=== PATIENT | female | born 1965 | race African-American/Black ===

== ENCOUNTER 2018-08-07 11:13 | Inpatient (IN) | payer OTHER ==
[2018-08-07 11:42] VITALS: BMI 22.0
--- NOTE | 2018-08-07 14:00 | HP ---
CIWA Score - Admission Criteria [facility] Guidelines: Admission for Medically Managed Detox: Requires at least one of the followin. CIWA greater than 12 2. Seizures within the past 24 hours 3. Delirium tremens within the past 24 hours 4. Hallucinations within the past 24 hours 5. Acute intervention needed for co occurring medical disorder 6. Acute intervention needed for co occurring psychiatric disorder 7. Severe withdrawal that cannot be handled at a lower level of care (continued vomiting, continued diarrhea, abnormal vital signs) requiring intravenous medication and/or fluids 8. Admission ROS S - HPI Allergies/Adverse Reactions: Allergies Allergy/AdvReac Type Severity Reaction Status Date / Time No Known Drug Allergies Allergy Unknown Verified 08/07/18 15:09 History of Present Illness: patient here requesting rehab from etoh and cocaine use , s/p detox completed 08/06/18 , direct transfer from detox . cocaine - since age 28 via inhalation menopausal PMHX : denies PShxc : denies Psych : denies Meds :denies Tobacco : 1/2 ppd , requesting nrt w/ patch Exam Limitations: No Limitations - Ebola screening Have you traveled outside of the country in the last 21 days: No Have you had contact with anyone from an Ebola affected area: No Have you been sick,other than usual withdrawal symptoms: No Do you have a fever: No - Review of Systems Constitutional: No Symptoms Reported EENT: reports: Other (glasses , denies dysphagia) Respiratory: reports: No Symptoms reported Cardiac: reports: No Symptoms Reported GI: reports: No Symptoms Reported : reports: No Symptoms Reported Musculoskeletal: reports: No Symptoms Reported Integumentary: reports: No Symptoms Reported Neuro: reports: No Symptoms reported Endocrine: reports: No Symptoms Reported Psychiatric: reports: Orientated x3 Patient History - Patient Medical History Hx Anemia: No Hx Asthma: No Hx Chronic Obstructive Pulmonary Disease (COPD): No Hx Cancer: No Hx Cardiac Disorders: No Hx Congestive Heart Failure: No Hx Hypertension: No Hx Hypercholesterolemia: No Hx Pacemaker: No HX Cerebrovascular Accident: No Hx Seizures: No Hx Dementia: No Hx Diabetes: No Hx Gastrointestinal Disorders: No Hx Liver Disease: No Hx Genitourinary Disorders: No Hx Sexually Transmitted Disorders: No Hx Renal Disease (ESRD): No Hx Thyroid Disease: No Hx Human Immunodeficiency Virus (HIV): No (09/07 last) Hx Hepatitis C: No Hx Depression: Yes Hx Suicide Attempt: No (Denies current SI) Hx Bipolar Disorder: No Hx Schizophrenia: No - Patient Surgical History Past Surgical History: Yes Hx Neurologic Surgery: No Hx Cataract Extraction: No Hx Cardiac Surgery: No Hx Lung Surgery: No Hx Breast Surgery: No Hx Breast Biopsy: No Hx Abdominal Surgery: No Hx Appendectomy: No Hx Cholecystectomy: No Hx Genitourinary Surgery: No Hx Section: No Hx Orthopedic Surgery: No Other Surgical History: TUBAL LIGATION IN 2007 Anesthesia Reaction: No - PPD History Date: 10/04/17 Results: 0 MM - Reproductive History Last Menstrual Period: 05/26/15 - Smoking Cessation Smoking history: Current every day smoker Have you smoked in the past 12 months: Yes Aproximately how many cigarettes per day: 10 Hx Chewing Tobacco Use: No Initiated information on smoking cessation: No - Substances Abused Crack Route: Smoking Frequency: 1-2 times per week Amount used: $50 Age of first use: 38 Date of Last Use: 08/02/18 Alcohol-vodka Route: Oral Frequency: Daily Amount used: 4-5 pts. Age of first use: 23 Date of Last Use: 08/02/18 Family Disease History - Family Disease History Family Disease History: CA: Mother (Unk CA, ), Other: Father (stroke, ) Admission Physical Exam S - Vital Signs Vital Signs: Vital Signs - 24 hr 08/07/18 11:41 Temperature 97.5 F L Pulse Rate 77 Respiratory 18 Rate Blood Pressure 128/83 - Physical General Appearance: Yes: No Apparent Distress HEENTM: Yes: EOMI, Hearing grossly Normal, Normocephalic, Normal Voice Respiratory: Yes: Chest Non-Tender, Lungs Clear, Normal Breath Sounds Neck: Yes: No masses,lesions,Nodules, Trachea in good position Cardiology: Yes: Regular Rhythm, Regular Rate, S1, S2, Gallop/S3 Abdominal: Yes: Normal Bowel Sounds, Non Tender, Soft Genitourinary: Yes: Within Normal Limits Back: Yes: Normal Inspection Musculoskeletal: Yes: full range of Motion, Gait Steady Extremities: Yes: Normal Capillary Refill, Normal Range of Motion, Non-Tender Neurological: Yes: Motor Strength 5/5 Integumentary: Yes: Normal Color - Diagnostic (1) Alcohol dependence Current Visit: No Status: Chronic (2) Cocaine dependence Current Visit: No Status: Chronic (3) Nicotine dependence Current Visit: No Status: Chronic Qualifiers: Nicotine product type: cigarettes BHS Breath Alcohol Content Breath Alcohol Content: 0 Urine Drug Screen - Results Drug Screen Negative: No Urine Drug Screen Results: BZO-Benzodiazepines Inpatient Rehab Admission - Rehab Decision to Admit Inpatient rehab admission?: Yes - Initial Determination Are CD services needed?: Yes Free of communicable disease: Yes Not in need of hospitalization: Yes - Rehab Admission Criteria Previous failed treatment: No Poor recovery environment: No Comorbidities: No Lacks judgement: Yes Patient is meeting Inpatient Rehab admission criteria:: Yes
[2018-08-07] MEDS ORDERED: ACETAMINOPHEN 325 MG TABLET (FP) PO PRN (14:03)
[2018-08-07] MEDS ORDERED: MAGNESIUM HYDROX 2400MG/30ML ORAL SUSPENSION 30 ML CUP PO PRN (14:03)
[2018-08-07] MEDS ORDERED: IBUPROFEN 400 MG TABLET (FP) PO PRN (14:03)
[2018-08-07] MEDS ORDERED: MAG HYDROX/AL HYDROX/SIMETH 30 ML UNIT-DOSE CUP PO PRN (14:03)
[2018-08-07] MEDS ORDERED: MENTHOL/PHENOL 1 EACH UD MM PRN (14:03)
[2018-08-07] MEDS ORDERED: NICOTINE POLACRILEX 2 MG GUM BUC PRN (14:03)
[2018-08-07] MEDS ORDERED: MAGNESIUM CITRATE 300 ML BOTTLE PO PRN (14:03)
[2018-08-07] MEDS: THIAMINE HCL 100 MG TABLET (FP) PO SCH (21:54)
[2018-08-08] MEDS: NICOTINE 14 MG/24 HOURS TOPICAL PATCH TD SCH (09:03)
[2018-08-08] MEDS: AMMONIUM LACTATE 12% LOTION 225 GM BOTTLE TP PRN (09:04)
[2018-08-08] MEDS: PRENATAL VITAMINS W/ FOLIC ACID TABLET (FP) PO SCH (09:05)
[2018-08-08] MEDS ORDERED: PT OWN MED DRAWER 7, Y5N ONE (09:21)
[2018-08-08 10:19] LABS: ALBUMIN 3.9 g/dl (3.4-5.0); ALK PHOS 82 U/L (45-117); ANION GAP 4 MMOL/L (8-16); BILIRUBIN,TOTAL 0.3 mg/dL (0.2-1); BLOOD UREA NITROGEN 24 mg/dL (7-18); CALCIUM 9.3 mg/dL (8.5-10.1); CHLORIDE 105 mmol/L (98-107); CO2 29 mmol/L (21-32); CREATININE 0.6 mg/dL (0.55-1.3); GLUCOSE,RANDOM 85 mg/dL (74-106); POTASSIUM 4.6 mmol/L (3.5-5.1); SGOT/AST 15 U/L (15-37); SGPT/ALT 22 U/L (13-61); SODIUM 137 mmol/L (136-145); TOT PROT 8.6 g/dl (6.4-8.2)
[2018-08-08 10:30] LABS: HEMATOCRIT 39.7 % (32.4-45.2); HEMOGLOBIN 13.3 GM/dL (10.7-15.3); MCH 33.5 pg (25.7-33.7); MCHC 33.4 g/dl (32.0-36.0); MEAN CELL VOLUME 100.4 fl (80-96); PLATELET COUNT 201 K/MM3 (134-434); RBC 3.95 M/mm3 (3.60-5.2); WHITE BLOOD COUNT 3.2 K/mm3 (4.0-10.0)
[2018-08-08] MEDS ORDERED: COLLOIDAL OATMEAL 1 BAR EACH TP PRN (11:06)
[2018-08-08 13:57] LABS: RPR REACTIVE 1:1 (NONREACTIVE)
[2018-08-08 13:58] LABS: TREPONEMA ANTIBODY PREVIOUSLY REACTIVE (NONREACTIVE)
[2018-08-08 15:43] LABS: URINE APPEARANCE CLEAR; URINE BILIRUBIN NEGATIVE (<2.0 mg/dL); URINE COLOR YELLOW; URINE GLUCOSE (UA) NEGATIVE (NEGATIVE); URINE KETONE NEGATIVE (NEGATIVE); URINE LEUK ESTERASE NEGATIVE (NEGATIVE); URINE NITRITE NEGATIVE (NEGATIVE); URINE PROTEIN NEGATIVE (NEGATIVE); URINE UROBILINOGEN NEGATIVE mg/dL (0.2-1.0)
[2018-08-08] MEDS: THIAMINE HCL 100 MG TABLET (FP) PO SCH (21:53)
[2018-08-08] MEDS: MELATONIN 5 MG TABLETS PO PRN (21:54)
[2018-08-09] MEDS: NICOTINE 14 MG/24 HOURS TOPICAL PATCH TD SCH ×2 (07:52→08:13)
[2018-08-09] MEDS: PRENATAL VITAMINS W/ FOLIC ACID TABLET (FP) PO SCH (10:18)
[2018-08-09] MEDS: MELATONIN 5 MG TABLETS PO PRN (21:19)
[2018-08-09] MEDS: THIAMINE HCL 100 MG TABLET (FP) PO SCH (21:19)
[2018-08-10] MEDS: NICOTINE 14 MG/24 HOURS TOPICAL PATCH TD SCH (06:50)
[2018-08-10] MEDS: PRENATAL VITAMINS W/ FOLIC ACID TABLET (FP) PO SCH (10:19)
--- NOTE | 2018-08-10 11:18 | PN ---
[facility] Progress Note Note: LAB REVIEW; Vital Signs - 24 hr 08/10/18 08/10/18 08/10/18 00:30 03:30 06:59 Temperature 97.7 F Pulse Rate 77 Respiratory 18 18 18 Rate Blood Pressure 108/72 Laboratory Tests 08/07/18 08/08/18 08/08/18 09:20 06:00 06:00 WBC 3.2 L RBC 3.95 Hgb 13.3 Hct 39.7 D MCV 100.4 H MCH 33.5 MCHC 33.4 RDW 15.0 Plt Count 201 MPV 11.0 D Sodium 137 Potassium 4.6 Chloride 105 Carbon Dioxide 29 Anion Gap 4 L BUN 24 H Creatinine 0.6 Creat Clearance w eGFR > 60 Random Glucose 85 Calcium 9.3 Total Bilirubin 0.3 AST 15 ALT 22 Alkaline Phosphatase 82 Total Protein 8.6 H Albumin 3.9 Urine Color Yellow Urine Appearance Clear Urine pH 6.0 Ur Specific [place] 1.021 Urine Protein Negative Urine Glucose (UA) Negative Urine Ketones Negative Urine Blood Negative Urine Nitrite Negative Urine Bilirubin Negative Urine Urobilinogen Negative Ur Leukocyte Esterase Negative RPR Titer T.pallidum Ab (A) 08/08/18 06:00 WBC RBC Hgb Hct MCV MCH MCHC RDW Plt Count MPV Sodium Potassium Chloride Carbon Dioxide Anion Gap BUN Creatinine Creat Clearance w eGFR Random Glucose Calcium Total Bilirubin AST ALT Alkaline Phosphatase Total Protein Albumin Urine Color Urine Appearance Urine pH Ur Specific [place] Urine Protein Urine Glucose (UA) Urine Ketones Urine Blood Urine Nitrite Urine Bilirubin Urine Urobilinogen Ur Leukocyte Esterase RPR Titer Reactive 1:1 H T.pallidum Ab (A) Previously reactive LABS NOTED.
[2018-08-10] MEDS: MELATONIN 5 MG TABLETS PO PRN (21:00)
[2018-08-10] MEDS: THIAMINE HCL 100 MG TABLET (FP) PO SCH (21:00)
[2018-08-11] MEDS: NICOTINE 14 MG/24 HOURS TOPICAL PATCH TD SCH (07:01)
[2018-08-11 07:26] VITALS: BP 126/87; PULSE 80; TEMP 97.6
[2018-08-11] MEDS: AMMONIUM LACTATE 12% LOTION 225 GM BOTTLE TP PRN (10:09)
[2018-08-11] MEDS: PRENATAL VITAMINS W/ FOLIC ACID TABLET (FP) PO SCH (10:09)
--- NOTE | 2018-08-11 11:29 | DS ---
[facility] Detox Discharge Summary Admission Date: 08/07/18 Discharge Date: 08/11/18 - History Present History: Alcohol Dependence, Cocaine Dependence Additional Comments: patient did not want to complete treatment,all attempts to convince patient to stay with no avail by counselor and nurse, did not want to wait,singed release ama,left the unit in stable condition Pertinent Past History: nicotine dependence - Physical Exam Results Vital Signs: Vital Signs Temperature 97.6 F 08/11/18 07:25 Pulse Rate 80 08/11/18 07:25 Respiratory Rate 18 08/11/18 07:25 Blood Pressure 126/87 08/11/18 07:25 O2 Sat by Pulse Oximetry (%) Pertinent Admission Physical Exam Findings: Vital Signs Temperature 97.6 F 08/11/18 07:25 Pulse Rate 80 08/11/18 07:25 Respiratory Rate 18 08/11/18 07:25 Blood Pressure 126/87 08/11/18 07:25 O2 Sat by Pulse Oximetry (%) Laboratory Last Values WBC 3.2 K/mm3 (4.0-10.0) L 08/08/18 06:00 RBC 3.95 M/mm3 (3.60-5.2) 08/08/18 06:00 Hgb 13.3 GM/dL (10.7-15.3) 08/08/18 06:00 Hct 39.7 % (32.4-45.2) D 08/08/18 06:00 MCV 100.4 fl (80-96) H 08/08/18 06:00 MCH 33.5 pg (25.7-33.7) 08/08/18 06:00 MCHC 33.4 g/dl (32.0-36.0) 08/08/18 06:00 RDW 15.0 % (11.6-15.6) 08/08/18 06:00 Plt Count 201 K/MM3 (134-434) 08/08/18 06:00 MPV 11.0 fl (7.5-11.1) D 08/08/18 06:00 Sodium 137 mmol/L (136-145) 08/08/18 06:00 Potassium 4.6 mmol/L (3.5-5.1) 08/08/18 06:00 Chloride 105 mmol/L (98-107) 08/08/18 06:00 Carbon Dioxide 29 mmol/L (21-32) 08/08/18 06:00 Anion Gap 4 MMOL/L (8-16) L 08/08/18 06:00 BUN 24 mg/dL (7-18) H 08/08/18 06:00 Creatinine 0.6 mg/dL (0.55-1.3) 08/08/18 06:00 Creat Clearance w eGFR > 60 (>60) 08/08/18 06:00 Random Glucose 85 mg/dL (74-106) 08/08/18 06:00 Calcium 9.3 mg/dL (8.5-10.1) 08/08/18 06:00 Total Bilirubin 0.3 mg/dL (0.2-1) 08/08/18 06:00 AST 15 U/L (15-37) 08/08/18 06:00 ALT 22 U/L (13-61) 08/08/18 06:00 Alkaline Phosphatase 82 U/L (45-117) 08/08/18 06:00 Total Protein 8.6 g/dl (6.4-8.2) H 08/08/18 06:00 Albumin 3.9 g/dl (3.4-5.0) 08/08/18 06:00 Urine Color Yellow 08/07/18 09:20 Urine Appearance Clear 08/07/18 09:20 Urine pH 6.0 (5.0-8.0) 08/07/18 09:20 Ur Specific [place] 1.021 (1.010-1.035) 08/07/18 09:20 Urine Protein Negative (NEGATIVE) 08/07/18 09:20 Urine Glucose (UA) Negative (NEGATIVE) 08/07/18 09:20 Urine Ketones Negative (NEGATIVE) 08/07/18 09:20 Urine Blood Negative (NEGATIVE) 08/07/18 09:20 Urine Nitrite Negative (NEGATIVE) 08/07/18 09:20 Urine Bilirubin Negative (<2.0 mg/dL) 08/07/18 09:20 Urine Urobilinogen Negative mg/dL (0.2-1.0) 08/07/18 09:20 Ur Leukocyte Esterase Negative (NEGATIVE) 08/07/18 09:20 RPR Titer Reactive 1:1 (NONREACTIVE) H 08/08/18 06:00 T.pallidum Ab ([facility]) Previously reactive (NONREACTIVE) 08/08/18 06:00 treated for syphilis in the past - Medication Discharge Medications: Ambulatory Orders NK [No Known Home Medication] 09/29/14 - AMA Did Patient Leave Against Medical Advice: Yes
== END 2018-08-11 11:11 | disposition left against medical advice (07) | DRG 770 ==
LOC: YASAS 11:13 → Y3E 15:33
PROVIDERS: ADMIT Neuromusculoskeletal Medicine & OMM; ATTEND Neuromusculoskeletal Medicine & OMM
PROC: HZ42ZZZ Group Counseling for Substance Abuse Treatment, Cognitive-Behavioral (ICD-10-PCS; principal; 2018-08-07)
DX: F10.20 Alcohol dependence, uncomplicated (principal); F14.20 Cocaine dependence, uncomplicated; F17.210 Nicotine dependence, cigarettes, uncomplicated; Z87.42 Personal history of other diseases of the female genital tract
CPT/HCPCS: 36415; 80053; 81003; 85027; 86593; 86780